=== PATIENT | male | born 1995 | race Two or more races ===

== ENCOUNTER 2021-09-01 04:11 | Day surgery (SDC) | payer OTHER ==
[2021-08-30 16:36] VITALS: BMI 31.6
[2021-09-01] MEDS ORDERED: LIDOCAINE 1%/EPI 1:100000 (20 ML MULTI DOSE VIAL) ONE ×2 (12:39→13:43)
[2021-09-01] MEDS ORDERED: EPINEPHrine 1:1,000 TOPICAL SOL 30 ML BTL NS ONE ×2 (13:00→14:21)
[2021-09-01] MEDS ORDERED: HYDROmorphone HCl 2 MG/ML VIAL ONE (13:08)
[2021-09-01] MEDS ORDERED: PROPOFOL 20 ML ONE (13:08)
[2021-09-01] MEDS ORDERED: ceFAZolin SODIUM 1 GM VIAL IVPB ONE (13:30)
[2021-09-01] MEDS ORDERED: OXYMETAZOLINE 0.05% NASAL SOLUTION 15 ML BOTTLE NS ONE ×3 (13:45→14:19)
[2021-09-01] MEDS ORDERED: ROCURONIUM BROMIDE 50 MG/5 ML SYRINGE ONE (13:50)
[2021-09-01] MEDS ORDERED: LIDOCAINE 1%/EPI 1:100000 (20 ML MULTI DOSE VIAL) IJ ONE ×2 (16:03)
[2021-09-01] MEDS ORDERED: NEOSTIGMINE METHYLSULFATE 0.5 MG/ML - 10 ML MDV ONE (16:10)
[2021-09-01] MEDS ORDERED: ONDANSETRON 4 MG/2 ML VIAL IVPUSH PRN (16:59)
[2021-09-01] MEDS ORDERED: LACTATED RINGERS SOLUTION 1,000 ML IV SCH (17:00)
[2021-09-01 18:11] VITALS: TEMP 97.8
[2021-09-01 19:09] VITALS: BP 117/81; PULSE 94
== END 2021-09-01 19:10 | disposition home or self-care (01) ==
LOC: JASU-SURG 04:11
PROVIDERS: ATTEND Otolaryngology
PROC: 099R8ZZ Drainage of Left Maxillary Sinus, Via Natural or Artificial Opening Endoscopic (ICD-10-PCS; 2021-09-01)
PROC: 099Q8ZZ Drainage of Right Maxillary Sinus, Via Natural or Artificial Opening Endoscopic (ICD-10-PCS; 2021-09-01)
PROC: 09BL8ZZ Excision of Nasal Turbinate, Via Natural or Artificial Opening Endoscopic (ICD-10-PCS; 2021-09-01)
PROC: 8E09XBZ Computer Assisted Procedure of Head and Neck Region (ICD-10-PCS; principal; 2021-09-01 11:30)
DX: J32.4 Chronic pansinusitis (principal); J33.9 Nasal polyp, unspecified; J34.3 Hypertrophy of nasal turbinates
CPT/HCPCS: 88302-TC; 88311-TC; 94760